=== PATIENT | female | born 1940 | race Caucasian/White ===

== ENCOUNTER → 2017-11-17 | Outpatient (CLI) | payer MEDICARE, OTHER ==
[~2017-11-17] MED LIST: AMOX-559 PO; CHOL100058 PO; CIPR-214 PO; CLOP75TA PO; FLE100 PO; FLUO-202 PO; LEVO75TA68 PO; LOR5/325 PO; LOSA100T67 PO; METR-1 PO; METR-160 PO; ONDA4TAB PO; PANT40TA65 PO; PROM-110 PO
== END ==
LOC: LAB 14:55
PROVIDERS: ATTEND Physician Assistant
DX: R19.7 Diarrhea, unspecified (principal)
CPT/HCPCS: 83630; 87045; 87177; 87324; 87449

== ENCOUNTER → 2018-01-23 | Outpatient (CLI) | payer MEDICARE, OTHER ==
[~2018-01-23] MED LIST changes: -LOSA100T67 PO; +LOSA100T69 PO
== END ==
LOC: LAB 09:23
PROVIDERS: ATTEND Surgery
DX: R19.7 Diarrhea, unspecified (principal)
CPT/HCPCS: 82274; 82705; 83630; 87045; 87177; 87205

== ENCOUNTER → 2018-01-26 | Outpatient (CLI) | payer MEDICARE, OTHER | LOC: LAB 15:38 | PROVIDERS: ATTEND Physician Assistant | DX: R19.7 Diarrhea, unspecified (principal) | CPT/HCPCS: 82274; 87493 ==

== ENCOUNTER → 2018-11-01 | Outpatient (CLI) | payer MEDICARE, OTHER ==
[~2018-11-01] MED LIST changes: -LOSA100T69 PO; +LOSA100T75 PO; -METR-160 PO; +METR500T15 PO
--- NOTE | 2018-11-01 16:06 | RADIOLOGY IMAGING REPORT ---
[place] [facility] [place] NAME: Laura Raya : 1940 MR: [id number] V: [id number] EXAM DATE: ORDERING PHYSICIAN: DELVIN RAYA TECHNOLOGIST: Location: [facility] Patient: Laura Raya : 1940 Visit/Account:[id number] Date of Sevice: 11/01/2018 Venous Doppler ultrasound left lower extremity Indication: Left calf pain. Comparison: None Available Findings: Duplex Doppler and color flow imaging was performed. The common femoral, femoral, and popl iteal veins are all patent and compressible with normal Doppler wave forms. There are normal respons es to augmentation. The posterior tibial and peroneal veins are patent in the calf. The proximal gre ater saphenous vein is also normal. IMPRESSION: 1. No evidence of deep venous thrombosis of the left lower extremity. Report Dictated By: Yonis Stafford DO at 11/01/2018 3:57 PM Report E-Signed By: Yonis Stafford DO at 11/01/2018 3:59 PM WSN:[id number]
== END ==
LOC: US 14:52
PROVIDERS: ATTEND Obstetrics & Gynecology
DX: M79.662 Pain in left lower leg (principal)